=== PATIENT | female | born 1965 | race Caucasian/White ===

== ENCOUNTER 2019-12-09 18:48 | Observation (INO) | payer BC ==
[~2019-12-09] VITALS: Ht 170.2 cm; Wt 97.5 kg
--- NOTE | 2019-12-09 19:00 | NUR ---
THIS IS A 54Y F BIB EMS FROM [place], PT HAS BEEN HAVING CP THAT COMES WITH EXERTION PT REPORTS THIS PAIN X2 WEEKS. PT RECENTLY WAS DIAGNOSED WITH HTN BUT HAS NOT BEEN TREATED YET. TODAY PT WAS AT WORK AND CP BEGAN, PER EMS REPORT PT WAS FOUND TO HAVE ST ELEVATION OF 1MM, PT WAS GIVEN NITRO, ASA AND HEPARIN DIRECTOR OF QUALITY IMPROVEMENT. PT A/O4 AMBULATORY ABLE TO SPEAK IN FULL SENTENCES DENIES CP/ ASSOCIATED SYMPTOMS AT TIME OF ARRIVAL TO ER. PT CONNECTED TO ALL MONITORING VSS, NADN AT BEDSIDE.
--- NOTE | 2019-12-09 19:15 | NUR ---
ERP AT BEDSIDE FOR ASSESSMENT PER ERP NO NEED FOR HEPARIN AT THIS TIME.
--- NOTE | 2019-12-09 19:18 | NUR ---
TECH AT BEDSIDE FOR EKG AT THIS TIME
[2019-12-09 19:44] LABS: TROPONIN I < 0.015 ng/mL (0.000-0.045)
[2019-12-09] MEDS ORDERED: ACETAMINOPHEN 500 MG TABLET PO ONE (20:00)
[2019-12-09] MEDS ORDERED: ACETAMINOPHEN 500 MG TABLET ONE (20:14)
--- NOTE | 2019-12-09 20:22 | NUR ---
PT MEDICATED PER MAR FOR HEADACHE. NO OTHER NEEDS AT THIS TIME VSS REMAINS AT BEDSIDE
[2019-12-09] MEDS ORDERED: ACETAMINOPHEN 325 MG TABLET PO PRN (20:30)
[2019-12-09] MEDS ORDERED: ONDANSETRON 2MG/ML, 2ML IV PRN (20:30)
[2019-12-09] MEDS ORDERED: BISACODYL 10 MG SUPP PR PRN (20:30)
[2019-12-09] MEDS ORDERED: NITROGLYCERIN 0.4 MG/SPRAY SL PRN (20:30)
[2019-12-09] MEDS ORDERED: morphine SULFATE 10 MG/ML, 1ML IV PRN (20:30)
[2019-12-09] MEDS ORDERED: BISACODYL 5 MG EC TABLET PO PRN (20:30)
[2019-12-09] MEDS ORDERED: ENOXAPARIN 40 MG/0.4 ML SQ SCH (20:30)
--- NOTE | 2019-12-09 20:59 | NUR ---
REPORT TO MABEL WASHINGTON PT READY FOR TRANSFER TO ROOM 505
[2019-12-09] MEDS ORDERED: ATORVASTATIN 40 MG TABLET PO SCH (21:00)
[2019-12-09] MEDS ORDERED: hydrALAzine 20 MG/ML, 1ML IV PRN (21:00)
[2019-12-09 21:39] VITALS: BP 128/79
[2019-12-09] MEDS: SODIUM CHLORIDE FLUSH 10ML SYR IVF SCH (22:08)
[2019-12-09 23:27] LABS: TROPONIN I < 0.015 ng/mL (0.000-0.045)
[2019-12-10 01:03] VITALS: BP 104/68
[2019-12-10] MEDS ORDERED: ASPIRIN 325 MG TABLET EC PO SCH (06:00)
[2019-12-10 06:50] LABS: ALBUMIN 3.7 g/dL (3.4-5.0); ANION GAP 5 mmol/L (5-15); CALCIUM 8.6 mg/dL (8.5-10.1); CHLORIDE 111 mmol/L (98-107)
[2019-12-10 07:02] LABS: ALANINE AMINOTRANSFERASE 32 U/L (12-78); ALKALINE PHOSPHATASE 106 U/L (45-117); BILIRUBIN,TOTAL 0.5 mg/dL (0.2-1.0); CHOL/HDL RATIO 5.5; CHOLESTEROL, TOTAL 231 mg/dL (140-239); CREATININE 0.99 mg/dL (0.55-1.02); HDL CHOL % 18 % (28-40); HDL CHOLESTEROL (DIRECT) 42 mg/dL (40-60); LDL CHOLESTEROL,CALCULATED 146 mg/dL (54-169); LDL/HDL RATIO 3.5 (0.5-3.0); TRIGLYCERIDES 213 mg/dL (50-200); VLDL CHOLESTEROL 43 mg/dL (0-25)
[2019-12-10 07:03] LABS: TROPONIN I < 0.015 ng/mL (0.000-0.045)
[2019-12-10 07:10] VITALS: BP 101/66
[2019-12-10] MEDS: SODIUM CHLORIDE FLUSH 10ML SYR IVF SCH (09:09)
[2019-12-10] MEDS ORDERED: OMEP-110 PO (13:19)
== END 2019-12-10 15:25 | disposition home or self-care (01) ==
LOC: ED 19:44 → 5SO 20:23 → ED 21:32 → DCLOUNGE 12-10 15:25
PROVIDERS: ADMIT Hospitalist; ATTEND Hospitalist
DX: I20.9 Angina pectoris, unspecified (principal); I10 Essential (primary) hypertension; E78.5 Hyperlipidemia, unspecified; E66.9 Obesity, unspecified; E78.1 Pure hyperglyceridemia; F17.200 Nicotine dependence, unspecified, uncomplicated; Z90.710 Acquired absence of both cervix and uterus; Z68.33 Body mass index [BMI] 33.0-33.9, adult
CPT/HCPCS: 36415; 71045; 80053; 80061; 84443; 84484; 93005; 93017; 93306; 96372; 99285; G0378; J1650